=== PATIENT | male | born 1950 | race Caucasian/White ===

== ENCOUNTER 2023-01-22 14:47 | Emergency (ER) | payer MEDICARE ==
[~2023-01-22] VITALS: Ht 172.7 cm; Wt 103.0 kg
[2023-01-22 16:55] LABS: HEMOGLOBIN 15.1 g/dl (13.5-17.5); MEAN CORPUSCULAR HGB CONC 33.6 g/dl (32.0-36.5); MEAN CORPUSCULAR VOLUME 92.4 fl (80.0-96.0); PLATELET COUNT, AUTOMATED 243 10^3/uL (150-450); RED BLOOD COUNT 4.87 10^6/uL (4.30-6.10); WHITE BLOOD COUNT 12.2 10^3/uL (4.0-10.0)
[2023-01-22 17:06] LABS: BLOOD UREA NITROGEN 12 MG/DL (9-23); CALCIUM LEVEL 8.5 MG/DL (8.3-10.6); CARBON DIOXIDE LEVEL 27 MMOL/L (20-31); CHLORIDE LEVEL 102 MMOL/L (98-107); CREATININE FOR GFR 0.72 MG/DL (0.70-1.30); GLOMERULAR FILTRATION RATE > 60.0 (>42); GLUCOSE, FASTING 93 MG/DL (74-106); POTASSIUM SERUM 4.2 MMOL/L (3.5-5.1); SODIUM LEVEL 137 MMOL/L (136-145)
[2023-01-22] MEDS ORDERED: METOPROLOL TART 25 MG TABLET PO ONE (18:05)
[2023-01-22] MEDS ORDERED: APIXABAN 5 MG TAB (ELIQUIS) PO ONE (18:05)
[2023-01-22] MEDS ORDERED: METO1TAB87 PO (18:17)
[2023-01-22] MEDS ORDERED: ELIQ5TAB PO (18:17)
[2023-01-22 18:36] VITALS: BP 166/102
== END 2023-01-22 18:40 | disposition home or self-care (01) ==
LOC: M ED 14:47
DX: I48.0 Paroxysmal atrial fibrillation (principal); I45.81 Long QT syndrome; E11.9 Type 2 diabetes mellitus without complications; I10 Essential (primary) hypertension; E78.5 Hyperlipidemia, unspecified; G47.33 Obstructive sleep apnea (adult) (pediatric); Z79.01 Long term (current) use of anticoagulants; Z79.899 Other long term (current) drug therapy; Z88.2 Allergy status to sulfonamides